=== PATIENT | female | born 1970 | race Caucasian/White ===

== ENCOUNTER → 2016-09-23 | Outpatient (CLI) | payer OTHER ==
--- NOTE | 2016-09-23 10:16 | RADRPT ---
EXAM DATE/TIME: 09/23/2016 09:19 [place] COMPARISON: No previous studies available for comparison. INDICATIONS : Abdominal palpable lump. MEDICAL HISTORY : History of ectopic . SURGICAL HISTORY : Fallopian tube removal. ENCOUNTER: Initial ACUITY: 2 months PAIN SCORE: 0/10 LOCATION: Abdomen. MEASUREMENTS: LIVER: 19.1 cm length COMMON DUCT: 4 mm RIGHT KIDNEY: 11.0 x 4.9 x 5.0 cm LEFT KIDNEY: 10.4 x 4.4 x 5.6 cm SPLEEN: 11.1 cm length AORTA: 2.1cm maximal FINDINGS: LIVER: Normal without focal lesion or ductal dilatation. Hepatopedal flow. COMMON DUCT: No intraluminal mass or stone visualized. GALLBLADDER: Contains no stones, demonstrates no wall thickening or pericholecystic fluid. PANCREAS: The visualized portions are within normal limits. RIGHT KIDNEY: No hydronephrosis, stone or mass. LEFT KIDNEY: No hydronephrosis, stone or mass. SPLEEN: No focal lesion. AORTA: Non aneurysmal. IVC: Within normal limits. No abdominal hernia. Patient performed Valsalva and no mass or hernia identified. CONCLUSION: No abdominal mass or hernia. Horace Jeffrey MD on September 23, 2016 at 10:13 Board Certified Radiologist. This report was verified electronically.
== END ==
LOC: HRAD 08:47
DX: R19.00 Intra-abdominal and pelvic swelling, mass and lump, unspecified site (principal)
CPT/HCPCS: 76700